=== PATIENT | female | born 1975 | race Caucasian/White ===

== ENCOUNTER 2016-08-03 08:20 | Day surgery (SDC) | payer OTHER ==
[~2016-08-03] VITALS: Ht 160 cm; Wt 75.0 kg
[~2016-08-03 08:20] MED LIST: CALC500T9 PO; INUL2TAB8 PO; OMEP20CA11 PO; POLY17PO6 PO; RANI150T11 PO; SUCR1ORA2 PO; Sodium Chloride LOK Flush 10 mL Syringe IV PRN; fentaNYL-PF 50 mCg/mL 2 mL Inj IVPUSH PRN
[2016-08-03] MEDS ORDERED: 0.9% Sodium Chloride 1,000 ML ONE (08:37)
[2016-08-03 08:45] VITALS: BP 132/84; PULSE 68; O2SAT 99
[2016-08-03 09:31] VITALS: BP 120/72; PULSE 74; RESP 14; O2SAT 99
[2016-08-03 09:44] VITALS: BP 126/75; PULSE 65; RESP 14; O2SAT 99
[2016-08-03 09:59] VITALS: BP 121/70; PULSE 75; RESP 14; O2SAT 99
--- NOTE | 2016-08-03 12:48 | ENDO ---
[address] [address] ENDOSCOPY PROCEDURE PATIENT: ASHLEY RAMOS : 1975 MR#: [id number] ADMIT: 08/03/2016 JOB ID: [id number] OPERATION: Esophagogastroduodenoscopy with biopsy and colonoscopy with snare polypectomy. PREOPERATIVE DIAGNOSIS(ES): 1. Gastroesophageal reflux disease. 2. Epigastric pain. 3. Constipation. POSTOPERATIVE DIAGNOSIS(ES): 1. Normal upper endoscopy, status post biopsy. 2. Three rectal polyps; two removed by cold biopsy forceps and another one removed by hot snare polypectomy. Otherwise normal. ANESTHESIA: Fentanyl 150 mcg and Versed 8 mg IV administered. COMPLICATIONS: None. BLOOD LOSS: Minimal. DESCRIPTION OF PROCEDURE: After the risks and benefits were explained to the patient, informed consent was obtained. After anesthesia was administered, an upper endoscope was inserted into the mouth and intubated into the esophagus, the stomach, first and second portions, and duodenum. Mucosa carefully examined. After the procedure was done, the scope was withdrawn and the procedure terminated. The colonoscope was inserted from the rectum to the cecum. Mucosa carefully examined. Prep of the patient was excellent. After the procedure was done, the scope was withdrawn and the procedure terminated. FINDINGS: Upon inspection of the esophagus, the esophagus was normal, without masses, ulcers, or lesions. Z-line located 35 cm from incisors. Upon entering the stomach, the stomach was also normal, without masses, ulcers, or lesions. Retroflexion was normal. Duodenal bulb, first and second portion were normal. Biopsies taken in the duodenum, antrum, and body of the stomach and distal esophagus. Upon inspection of the anus, no masses, hemorrhoids, ulcers, or fissures that were seen. Throughout the entire examination there were three polyps seen in the rectum. Largest size was 5 mm in diameter. One was removed with hot snare polypectomy. The other 2 were approximately 3 mm in size and removed by cold biopsy forceps. No other polyps or masses were seen. Retroflexion was normal. IMPRESSIONS: Normal upper endoscopy, status post biopsy. Three polyps removed in the colon and the rectum; two removed by cold biopsy forceps and the other one removed by hot snare polypectomy. RECOMMENDATION: Await pathology results. Follow up in the GI Clinic as needed. If three or more tubular adenoma polyps, then next colonoscopy in three years. If less than three adenoma polyps, then next colonoscopy in five years.
--- NOTE | 2016-08-06 15:57 | PATH ---
SURGICAL PATHOLOGY Attending Physician:Kalin Yeboah MD CASE STATUS: Signed Out PATIENT NAME: ASHLEY RAMOS PID: [id number] : 1975 DATE COLLECTED:08/03/2016 18:01 SPECIMEN: 1: Esophagus, Biopsy 2: Stomach, Antrum, Biopsy 3: Gastric, Biopsy 4: Duodenum, Biopsy 5: Rectum, Biopsy 6: Rectum, Biopsy CLINICAL HISTORY: 1). DISTAL ESOPHAGUS BIOPSY 2). ANTRAL BIOPSY 3). GASTRIC BODY 4). DUODENUM BIOPSY 5). RECTAL POLYPS X2 6). RECTAL POLYP #2 X1 FINAL DIAGNOSIS: 1. Distal Esophagus, Biopsy: Squamocolumnar junctional mucosa with no diagnostic abnormality. Negative for intestinal metaplasia. Negative for dysplasia and malignancy. 2. Stomach, Antrum, Biopsy: Antral mucosa with no diagnostic abnormality. Negative for Helicobacter organisms. Negative for intestinal metaplasia. Negative for dysplasia and malignancy. 3. Stomach, Body, Biopsy: Body-type mucosa with no diagnostic abnormality. Negative for Helicobacter organisms. Negative for intestinal metaplasia. Negative for dysplasia and malignancy. 4. Duodenum, Biopsy: Duodenal mucosa with no diagnostic abnormality. Negative for active inflammation, features of sprue, dysplasia and malignancy. 5. Rectum, Polyps x2, Biopsies: Tubular adenomas. 6. Rectum, Polyp #2 x1, Biopsy: Tubular adenoma. ICD10: D12.8 GROSS DESCRIPTION: The specimen is received in six formalin filled containers labeled with the patient's name. 1). The specimen is sublabeled "distal esophagus" and consists of 2 portions of tissue which aggregate to 0.3 x 0.3 x 0.2 CM. The specimen is entirely submitted in cassette 1A. 2). The specimen is sublabeled "antral" and consists of 2 portions of tissue which aggregate to 0.4 x 0.3 x 0.2 CM. The specimen is entirely submitted in cassette 2A. 3). The specimen is sublabeled "gastric body" and consists of 2 portions of tissue which aggregate to 0.6-0.3 x 0.2 CM. The specimen is entirely submitted in cassette 3A. 4). The specimen is sublabeled "duodenum" and consists of 2 portions of tissue which aggregate to 0.3 x 0.3 x 0.2 CM. The specimen is entirely submitted in cassette 4A. 5). The specimen is sublabeled "rectal polyp x2" and consists of 2 portions of tissue which aggregate to 0.3 x 0.3 x 0.2 CM. The specimen is entirely submitted in cassette 5A. 6). The specimen is sublabeled "rectal polyp #2" and consists of a 0.3 x 0.3 x 0.3 CM portion of tissue which is entirely submitted in cassette 6A. 08/03/2016 [facility] ICD-9 CODES: CPT CODES: 1: 73065 2: 74526 3: 82486 4: 27503 5: 96611 6: 73497 Electronically Signed Out Isha Ashford MD [facility] [address], [place] [address] Technical component performed at [facility], [facility] [address], [place], [address]
[2016-09-06] MEDS ORDERED: INUL1TAB4 PO (12:31)
== END 2016-08-03 23:59 | disposition home or self-care (01) ==
LOC: END 08:20
PROVIDERS: ATTEND Internal Medicine Gastroenterology
DX: R10.13 Epigastric pain (principal); K21.9 Gastro-esophageal reflux disease without esophagitis; D12.8 Benign neoplasm of rectum; K59.00 Constipation, unspecified; Z80.0 Family history of malignant neoplasm of digestive organs
CPT/HCPCS: 43239; 45380; 45385; G0500; J2250; J3010; J7030

== ENCOUNTER 2016-09-12 11:59 | Day surgery (SDC) | payer OTHER ==
[~2016-09-12] VITALS: Ht 160 cm; Wt 85.9 kg
[2016-09-12] VITALS (19 sets, daily range): BP systolic 107–126; BP diastolic 61–88; PULSE 72–98; RESP 11–18; O2SAT 95–100
[~2016-09-12 11:59] MED LIST changes: +INUL1TAB4 PO; -INUL2TAB8 PO; +Lactated Ringer's 1,000 ML IV SCH; -RANI150T11 PO; -SUCR1ORA2 PO; -Sodium Chloride LOK Flush 10 mL Syringe IV PRN; -fentaNYL-PF 50 mCg/mL 2 mL Inj IVPUSH PRN
[2016-09-12] MEDS ORDERED: fentaNYL-PF 50 mCg/mL 2 mL Inj ONE (12:00)
[2016-09-12] MEDS ORDERED: Dexamethasone 4 mg/mL Inj ONE (12:00)
[2016-09-12] MEDS ORDERED: Rocuronium 10 mg/mL 5 mL Inj ONE (12:00)
[2016-09-12] MEDS ORDERED: Ondansetron 2 mg/mL 2 mL Inj ONE (12:00)
[2016-09-12] MEDS ORDERED: Propofol 10,000 mCg/mL 20 mL Inj ONE (12:00)
[2016-09-12] MEDS ORDERED: Lactated Ringer's 1,000 ML IV ONE ×2 (12:30→18:32)
[2016-09-12] MEDS ORDERED: Bupivacaine 0.5%/EPI 50 mL Inj INFILTRATE ONE (15:17)
[2016-09-12] MEDS ORDERED: Lactated Ringer's 1,000 ML IV SCH (15:50)
[2016-09-12] MEDS ORDERED: MetoCLOpramide 5 mg/mL 2 mL Inj IVPUSH PRN (15:50)
[2016-09-12] MEDS ORDERED: EPHEDrine Sulfate 50 mg/mL Inj IVPUSH PRN (15:50)
[2016-09-12] MEDS ORDERED: Dexamethasone 4 mg/mL Inj IVPUSH PRN (15:50)
[2016-09-12] MEDS ORDERED: Ondansetron 2 mg/mL 2 mL Inj IVPUSH PRN (15:50)
[2016-09-12] MEDS ORDERED: Phenylephrine 10,000 mCg/mL Inj IVPUSH PRN (15:50)
[2016-09-12] MEDS ORDERED: Lactated Ringer's 500 ML IV PRN (15:50)
[2016-09-12] MEDS ORDERED: oxyCODONE-Acetamin 5-325 mg Tablet PO PRN (16:05)
--- NOTE | 2016-09-12 16:11 | PCM.ANEP1 ---
Post Anesthesia Phase 1 PACU Phase 1 Assessment Vital Signs Vital Signs Date Time Temp Pulse Resp B/P Pulse Ox O2 Delivery O2 Flow Rate FiO2 09/12/16 16:06 37.2 76 12 126/61 97 Nasal Cannula 2 09/12/16 12:26 37.2 76 16 123/88 99 Room Air Anesthetic Administered: GA Level of Alertness: Sleepy, easy to arouse ZAMBRANO's with Equal Strength: Yes Pain: No Nausea or Vomiting: No Oxygen Delivery: Room Air Lungs: Clear to Auscultation, Normal Air Movement Dermatome Level: Full Sensation Bernardino Vo MD Sep 12, 2016 16:11
--- NOTE | 2016-09-12 16:11 | PCM.HPANE ---
Patient Data Surgeon Admitting Provider: Attending Provider:Lacey Kapoor MD Primary Care Physician:Isha Serra MD Other Provider:[facility] Reason for Visit Biliary Colic Ht/WT & BMI Height (Feet): 5 Height (Inches): 3 Weight (Kilograms): 85.9 Body Mass Index 33.00 Allergies Coded Allergies: No Known Allergies (Verified Allergy, Unknown, 09/06/16) Past Anesthesia History Anesthesia History: Denies:: Abnormal Airway, Anesthesia Reactions, Difficult Intubation, Fam Anesthesia Reaction, Fam Malignant Hypertherm, Malignant Hyperthermia Diabetes History Hx Diabetes?: No MRSA MRSA: No Medications Reported Medications Inulin/Chromium Picolinate (Fiber Gummies)2 Gram-100 Mcg Tab.chew1 Each PO DAILY 09/06/16 Calcium Carbonate (Tums)500 Mg Tab.hwmo233 Mg PO PRN PRN For Dyspepsia or Heartburn 30 Days 08/02/16 Omeprazole 20 Mg Capsule.dr20 Mg PO DAILY Ref 0 08/02/16 Polyethylene Glycol 3350 (Miralax)17 Gm Powd.pack17 Gm PO DAILY 08/02/16 History History of ENT Problems?: No HEENT History: Denies:: Abnormal Airway Difficult Intubation Dysphagia Hearing Problem Hx of Heart Problems?: Yes Cardiovascular History: Denies:: AICD Heart Murmur Hypertension Pacemaker Valvular Heart Disease Other Cardiac History: WORKUP IN [place] 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 Hx of Respiratory Problem?: No Respiratory History: Denies:: Use of C-PAP Machine Hx Neurologic Problems?: No Neurological History: Denies:: CVA Hx of GI Problems?: Yes Gastrointestinal History: Positive for:: Gall Bladder Disease (BILIARY COLIC= CURRENT PROBLEM C/OF INTERMITTANT RUQ PAIN) Gastroesphageal Reflux Liver Disease (MILD FATTY LIVER) Denies:: Cirrhosis Diverticulitis Hiatal Hernia Rectal Bleeding (COLON POLYPS) Other GI Pertinent History: C/OF CONSTIPATION Hx of Problems?: No Female Hx: Denies:: Currently Skin History: Denies:: History Skin Disorders? Pressure Ulcers Hx Musculoskeletal Problems?: Yes Musculoskeletal History: Positive for:: Musculoskeletal Trauma (S/P LT KNEE RPR) Denies:: Joint Replacement Hx of Psycho/Social Problems?: No Psycho Social History: Denies:: Anxiety Hx Depression Hx Surgeries?: Yes (tubal ligation, C-sec x2, L knee repair) Hx Any Other Health Problems?: Yes Other History: Denies:: Cancer Endocrine Disease Hospitalization Thyroid Disease Hx Diabetes: No Hx Alcohol Use: NoHx Substance Use: No Smoking Status: Never Smoker Have You Smoked inLast 12 mo: No Stop/Bang S-Snoring: Do You Snore Loudly: No T-Tired: feel tired, fatigued: No O-Obsered: Observed not breath: No P-Blood Pressure: treated: No B- Body Mass Index > 35 kg/m2: No A- Age over 50: No N- Neck Large Circumference: No G- Gender Male: No KAREN Total Score: 0 Risk Assessment Category Category 1A: Patient has history of documented sleep apnea, and HAS NOT received any narcotic, sedative or anesthesia administration during this stay. Category 1B: Patient has history of documented sleep apnea, and HAS received any narcotic , sedative or anesthesia administration during this stay Category 2: Patient has SUSPECTED Obstructive Sleep Apnea, and HAS received any narcotic , sedative or anesthesia administration during this stay. Category 3: Patient has SUSPECTED Obstructive Sleep Apnea and HAS NOT received narcotic, sedative or anesthesia administration during this stay. Category 4: Outpatient in Procedural Areas with known sleep apnea or who screen positive for High Risk via the STOP/BANG questionnaire. Exam Exam Vital Signs Vital Signs Date Time Temp Pulse Resp B/P Pulse Ox O2 Delivery O2 Flow Rate FiO2 09/12/16 12:26 37.2 76 16 123/88 99 Room Air General Appearance: Alert, Oriented X3, Cooperative, No Acute Distress HEENT/AIRWAY: MP 2 Lungs: Clear to Auscultation, Normal Air Movement Heart: Exam Unremarkable, Regular Rate/Rhythm, No Murmurs/Rubs/Gallops Meds/Labs/Diagnostics Admission Meds Current Medications Celecoxib (CeleBREX) 200 mg PREOP ONCE PO Last administered on 09/12/16 12:20 ; Start 09/12/16 at 06:00; Stop 09/12/16 at 06:01; Status DC Acetaminophen (Tylenol) 650 mg PREOP ONCE PO Last administered on 09/12/16 12 :20; Start 09/12/16 at 06:00; Stop 09/12/16 at 06:01; Status DC Gabapentin (Neurontin) 600 mg STK-MED ONCE .ROUTE Last administered on 12:20; Start 09/12/16 at 12:10; Stop 09/12/16 at 12:11; Status DC Scopolamine 1.5 mg 1.5 mg STK-MED ONCE TOPICAL Last administered on 09/12/16 12:20; Start 09/12/16 at 12:10; Stop 09/12/16 at 12:11; Status DC Lactated Ringer's (Lr) 1,000 ml @ ud STK-MED ONCE IV Last administered on 09/12 12:30; Start 09/12/16 at 12:30; Stop 09/12/16 at 13:40; Status DC Plan Impression Patient chart reviewed, patient interviewed and anesthestic plan with risks, benefits, and alternatives discussed, and informed consent obtained. NPO Status: 0900 ASA Physical Status: ASA2 Mod Systemic Disease Anesthetic Plan: GA Bene/Risks/Altern/Consents: Yes HP Complete Prior to Induction: Yes Bernardino Vo MD Sep 12, 2016 13:48
--- NOTE | 2016-09-12 16:18 | PCM.SURGOP ---
Surgical Operative Report Date of Service: Sep 12, 2016 Pre Operative Diagnosis Chronic cholecystitis Post Operative Diagnosis Chronic cholecystitis Procedure: Laparoscopic cholecystectomy Surgeon and Shell Sorter: Surgeon: Lacey Kapoor M.D. Assistants: Olaf Joy PA-C; Allen Shay MS3 The presence of an assistant unit forester was necessary for dissection and retraction. Indication for Procedure There is a 40-year-old woman with a history of chronic constipation who presented with coexisting postprandial abdominal pain particularly in the right upper quadrant. An abdominal ultrasound was performed and it revealed that her gallbladder was full of stones. She therefore consented to laparoscopic cholecystectomy after thorough discussion of risks and benefits. Findings: 1. Moderately inflamed gallbladder with thick chronic adhesions. 2. The gallbladder was opened on the back table postoperatively, and contained approximately 50 one cm stones. Procedure Details The patient was brought to the operating room and placed in supine position. General endotracheal anesthesia was smoothly induced. Antibiotics were infused. A warming blanket and SCDs were placed. A foot board was placed. The operative field was prepped and draped in sterile fashion. A pause was performed to confirm the correct patient, procedure, site, and side. A transverse 10 mm incision was made just below the umbilicus. The abdomen was entered under direct vision using a Erasmo port. Three additional 5 mm ports were placed in the epigastrium and right upper quadrant. The gallbladder was identified and lifted cephalad. There were thick adhesions suggestive of chronic cholecystitis. The gallbladder itself was very large, and contained many stones. Dissection then proceeded to identify the cystic duct, cystic artery, and to expose the lower one-third of the cystic plate. Once there were two and only two structures entering the gallbladder, a clip was placed on the gallbladder side of the cystic duct and two clips were placed on the cystic duct and it was divided. The cystic artery was clipped on both the gallbladder side and the patient's side and divided. The gallbladder was then removed from its bed on the liver with electrocautery. Prior to completely removing the gallbladder, a final look was taken at the stump of the cystic artery and cystic duct, and there was no bleeding or bile leak. The gallbladder was then fully removed from the liver and placed in an EndoCatch bag and removed. The three 5 mm ports were removed under direct vision, the 10 mm mid abdominal port was removed, and two [id number] PDS stitches were used to close the fascia. There was no fascial defect at the end of the case. 0.5% Marcaine with epinephrine was infused at all port sites for postoperative analgesia. The skin was closed with subcuticular 4-0 Monocryl. Sterile dressings were placed. Sponge, instrument, and needle counts were correct at the end of the procedure. The patient was awakened from general anesthesia and taken to the postoperative care unit in good condition. Complications There were no periprocedural complications identified. Surgical Specimen Removed: Yes Specimen sent to Pathology: Yes Surgical Specimen description: Gallbladder Anesthetic Plan: GA Grafts, Implants: None Output, Estimated Blood Loss: 5 (ml) Blood Administration during anderson: No Lacey Kapoor MD Sep 12, 2016 16:06
[2016-09-12] MEDS: fentaNYL-PF 50 mCg/mL 2 mL Inj IVPUSH PRN ×2 (16:23→17:06)
[2016-09-12] MEDS: HYDROmorphone 1 mg/mL Inj IVPUSH PRN ×2 (16:24→17:06)
--- NOTE | 2016-09-12 17:30 | PCM.ANEP2 ---
Post Anesthesia Evaluation ASA/CMS Post Anesthesia VS in Patient's Normal Range?: Yes Resp Stable; Airway Patent?: Yes CV Function & Hydration Stable: Yes Mental Status Recovered?: Yes Pain control Satisfactory?: Yes N/V Control Satisfactory?: Yes Bernardino Vo MD Sep 12, 2016 17:30
--- NOTE | 2016-09-14 11:41 | PATH ---
SURGICAL PATHOLOGY Attending Physician:Lacey Kapoor MD CASE STATUS: Signed Out PATIENT NAME: ASHLEY RAMOS PID: [id number] : 1975 DATE COLLECTED:09/12/2016 00:00 SPECIMEN: Gallbladder CLINICAL HISTORY: BILIARY COLIC 1). GALLBLADDER AND CONTENTS FINAL DIAGNOSIS: 1.GALLBLADDER: CHOLELITHIASIS WITH ASSOCIATED CHRONIC CHOLECYSTITIS. ICD10 CODE K80.66 GROSS DESCRIPTION: The specimen is received in one formalin filled container labeled with the patient's name, sublabeled "gallbladder" and consists of an opened 9.5 x 4.0 x 2.0 seem gallbladder. The serosa is smooth. The wall is 0.2-0.4 CM in thickness. The mucosa is a light to dark green in color. The lumen contains a light green mucoid material and approximately 40+ dark small-brown calculi which range in size from 0.5-0.8 CM in greatest dimension. 5 technology sales representative sections are submitted in one cassette. 09/13/2016 [facility] MICRO DESCRIPTION: See diagnosis. ICD-9 CODES: CPT CODES: 1: 63254 Electronically Signed Out Jesus Marsh MD [facility] [address], [place] [address] Technical component performed at [facility], [facility] [address], [place], [address]
== END 2016-09-12 23:59 | disposition home or self-care (01) ==
LOC: SAS 11:59
PROVIDERS: ATTEND Surgery
DX: K80.10 Calculus of gallbladder with chronic cholecystitis without obstruction (principal); K82.9 Disease of gallbladder, unspecified; K59.00 Constipation, unspecified; K21.9 Gastro-esophageal reflux disease without esophagitis; Z79.899 Other long term (current) drug therapy